=== PATIENT | male | born 1940 | race Caucasian/White ===

== ENCOUNTER 2018-09-27 23:11 | Emergency (ER) | payer OTHER ==
[~2018-09-27] VITALS: Ht 167.6 cm; Wt 54.0 kg
[2018-09-27] MEDS ORDERED: NS IV 1000 ML 1,000 ML ONE ×2 (23:24→23:32)
[2018-09-27 23:31] VITALS: BP 89/66
[2018-09-27] MEDS ORDERED: ACETAMINOPHEN 500 MG TAB (TYLENOL) PO STA (23:32)
[2018-09-27 23:45] LABS: BASOPHILS % (AUTO) 0 % (0-10); EOSINOPHILS % (AUTO) 0 % (0-10); HEMATOCRIT 40 % (40-54); HEMOGLOBIN 13.2 G/DL (13.3-17.7); LYMPHOCYTES # (AUTO) 0.8 X 10^3 (1.0-4.0); LYMPHOCYTES % (AUTO) 9 % (12-44); MEAN CORPUSCULAR HEMOGLOBIN 29 PG (25-34); MEAN CORPUSCULAR HGB CONC 33 G/DL (32-36); MEAN CORPUSCULAR VOLUME 87 FL (80-99); MONOCYTES # (AUTO) 0.7 X 10^3 (0.0-1.0); MONOCYTES % (AUTO) 7 % (0-12); NEUTROPHILS # (AUTO) 7.7 X 10^3 (1.8-7.8); NEUTROPHILS % (AUTO) 84 % (42-75); PLATELET COUNT 333 10^3/uL (130-400); RED BLOOD COUNT 4.62 10^6/uL (4.35-5.85); RED CELL DISTRIBUTION WIDTH 15.7 % (10.0-14.5); WHITE BLOOD COUNT 9.2 10^3/uL (4.3-11.0)
[2018-09-27] MEDS ORDERED: NS IV ONE (23:45)
[2018-09-27 23:57] LABS: INR 1.2 (0.8-1.4); PROTHROMBIN TIME PATIENT 15.7 SEC (12.2-14.7)
--- NOTE | 2018-09-27 23:59 | ED General ---
General Chief Complaint: Fever-Adult/Adol Stated Complaint: ABD PAIN Source of Information: Patient, Family Exam Limitations: No Limitations History of Present Illness Date Seen by Provider: Sep 27, 2018 Time Seen by Provider: 23:10 Initial Comments Here with report of onset of confusion tonight at about 8 p.m. They were driving home and he almost missed one turn and then missed another. He went home and slept and wasn't feeling good. Ultimately the family decided to bring him in for further evaluation. Arrives weak and hypoxic with blood pressure 89 systolic. Does have history of aortic abdominal [facility] Patient and family state it's not big enough for operation at. Does continue to smoke at least a half pack daily. Does use albuterol inhaler. Has had increased cough recently. Family and patient admits that he hasn't been feeling well all day long. Has complaint of pain to his left side that apparently is chronic and he states is not really significantly different than previous. Does have chills and is shaking all over. No report of vomiting or diarrhea. Timing/Duration: 12 Hours Severity: Moderate Associated Systoms: Cough, Fever/Chills; No Headaches, No Loss of Appetite; Malaise; No Nausea/Vomiting; Shortness of Air, Weakness Allergies and Home Medications Allergies Coded Allergies: No Known Drug Allergies (Unverified , 09/27/18) Patient Home Medication List Home Medication List Reviewed: Yes Review of Systems Review of Systems Constitutional: see HPI, chills; No diaphoresis; fever, weakness EENTM: nose congestion; No throat pain Respiratory: cough, short of breath Cardiovascular: No chest pain, No edema Gastrointestinal: abdominal pain; No nausea, No vomiting Genitourinary: no symptoms reported Musculoskeletal: muscle pain; No neck pain Skin: no symptoms reported Psychiatric/Neurological: See HPI, Weakness Hematologic/Lymphatic: No Symptoms Reported All Other Systems Reviewed Negative Unless Noted: Yes Past Ciemnov-Mzrhwn-Zqwhsi Hx Past Med/Social Hx: Reviewed Nursing Past Med/Soc Hx Patient Social History Alcohol Use: Denies Use Smoking Status: Current Everyday Smoker Type Used: Cigarettes Recent Foreign Travel: No Contact w/Someone Who Travel: No Past Medical History Surgeries: Yes Orthopedic Respiratory: Yes COPD Cardiac: Yes Aneurysm Neurological: No Genitourinary: Yes Benign Prostatic Hyperpl Gastrointestinal: Yes Gastrointestinal Bleed Musculoskeletal: Yes Endocrine: No HEENT: No Cancer: No Psychosocial: No Family Medical History Reviewed Nursing Family Hx No Pertinent Family Hx Physical Exam-Suspected Sepsis Physical Exam Vital Signs Vital Signs - First Documented 09/27/18 23:31 FiO2 100 Capillary Refill : Height, Weight, BMI Height: '" Weight: lbs. oz. kg; BMI Method: General Appearance: Mild Distress, Thin HEENT: PERRL/EOMI, Pharyngeal Erythema, Other (bilateral nasal congestion with clear rhinorrhea and moderate erythema) Neck: Non Tender, Supple Respiratory: Lungs Clear, Normal Breath Sounds Cardiovascular: No Murmur, Tachycardia Gastrointestinal: Non Tender, Soft Back: Normal Inspection, No CVA Tenderness, No Vertebral Tenderness Extremity: Normal Range of Motion, Non Tender Neurologic/Psychiatric: Alert, Disoriented (confused to time.) Skin: normal color, warm/dry Focused Exam Lactate Level 09/27/18 23:31: Lactic Acid Level 2.22*H 09/28/18 01:36: Lactic Acid Level 0.79 Lactic Acid Level Laboratory Tests Test 09/27/18 23:31 09/28/18 01:36 Lactic Acid Level 2.22 MMOL/L (0.50-2.00) *H 0.79 MMOL/L (0.50-2.00) Procedures/Interventions Lumen: triple Central Line Procedure: betadine prep, sterile drapes applied, sterile dressing applied Position: internal jugular (R) Anesthesia: Lidocaine Volume Anesthetic (ccs): 4 Complications: none Post Position: sutured, good blood return, position confirmed w/ CXR Progress/Results/Core Measures Suspected Sepsis SIRS Temperature: Pulse: Respiratory Rate: Laboratory Tests 09/27/18 23:31: White Blood Count 9.2 Blood Pressure / Mean: 09/27/18 23:31: Lactic Acid Level 2.22*H 09/28/18 01:36: Lactic Acid Level 0.79 Laboratory Tests 09/27/18 23:31: Creatinine 0.80, INR Comment 1.2, Platelet Count 333, Total Bilirubin 1.1H Results/Orders Lab Results Laboratory Tests Test 09/27/18 23:31 09/28/18 01:00 09/28/18 01:36 Range/Units White Blood Count 9.2 4.3-11.0 10^3/uL Red Blood Count 4.62 4.35-5.85 10^6/uL Hemoglobin 13.2 L 13.3-17.7 G/DL Hematocrit 40 40-54 % Mean Corpuscular Volume 87 80-99 FL Mean Corpuscular Hemoglobin 29 25-34 PG Mean Corpuscular Hemoglobin Concent 33 32-36 G/DL Red Cell Distribution Width 15.7 H 10.0-14.5 % Platelet Count 333 130-400 10^3/uL Mean Platelet Volume 10.0 7.4-10.4 FL Neutrophils (%) (Auto) 84 H 42-75 % Lymphocytes (%) (Auto) 9 L 12-44 % Monocytes (%) (Auto) 7 0-12 % Eosinophils (%) (Auto) 0 0-10 % Basophils (%) (Auto) 0 0-10 % Neutrophils # (Auto) 7.7 1.8-7.8 X 10^3 Lymphocytes # (Auto) 0.8 L 1.0-4.0 X 10^3 Monocytes # (Auto) 0.7 0.0-1.0 X 10^3 Eosinophils # (Auto) 0.0 0.0-0.3 10^3/uL Basophils # (Auto) 0.0 0.0-0.1 10^3/uL Prothrombin Time 15.7 H 12.2-14.7 SEC INR Comment 1.2 0.8-1.4 Activated Partial Thromboplast Time 22 L 24-35 SEC Sodium Level 132 L 135-145 MMOL/L Potassium Level 4.9 3.6-5.0 MMOL/L Chloride Level 93 L 98-107 MMOL/L Carbon Dioxide Level 21 21-32 MMOL/L Anion Gap 18 H 5-14 MMOL/L Blood Urea Nitrogen 16 7-18 MG/DL Creatinine 0.80 0.60-1.30 MG/DL Estimat Glomerular Filtration Rate > 60 BUN/Creatinine Ratio 20 Glucose Level 98 70-105 MG/DL Lactic Acid Level 2.22 *H 0.79 0.50-2.00 MMOL/L Calcium Level 9.4 8.5-10.1 MG/DL Corrected Calcium 9.7 8.5-10.1 MG/DL Total Bilirubin 1.1 H 0.1-1.0 MG/DL Aspartate Amino Transf (AST/SGOT) 37 H 5-34 U/L Alanine Aminotransferase (ALT/SGPT) 23 0-55 U/L Alkaline Phosphatase 274 H 40-136 U/L Total Protein 7.8 6.4-8.2 GM/DL Albumin 3.6 3.2-4.5 GM/DL Urine Color YELLOW Urine Clarity CLEAR Urine pH 5 5-9 Urine Specific Biddle 1.010 L 1.016-1.022 Urine Protein 2+ H NEGATIVE Urine Glucose (UA) NEGATIVE NEGATIVE Urine Ketones NEGATIVE NEGATIVE Urine Nitrite NEGATIVE NEGATIVE Urine Bilirubin NEGATIVE NEGATIVE Urine Urobilinogen 1 NORMAL MG/DL Urine Leukocyte Esterase 1+ H NEGATIVE Urine RBC (Auto) 1+ H NEGATIVE Urine RBC RARE /HPF Urine WBC 2-5 /HPF Urine Squamous Epithelial Cells 5-10 /HPF Urine Crystals NONE /LPF Urine Bacteria TRACE /HPF Urine Casts NONE /LPF Urine Mucus SMALL H /LPF Urine Culture Indicated CULTURE PENDING Micro Results Microbiology 09/27/18 Influenza Types A,B Antigen (ANNELISE) - Final, Complete My Orders Orders - LICHA DELACRUZ MD Ns Iv 1000 Ml (Sodium Chloride 0.9%) (09/27/18 23:24) Cbc With Automated Diff (09/27/18 23:32) Comprehensive Metabolic Panel (09/27/18 23:32) Blood Culture (09/27/18 23:32) Sputum Culture (09/27/18 23:32) Urinalysis (09/27/18 23:32) Urine Culture (09/27/18 23:32) Protime With Inr (09/27/18 23:32) Partial Thromboplastin Time (09/27/18 23:32) Saline Lock/Iv-Start (09/27/18 23:32) Saline Lock/Iv-Start (09/27/18 23:32) Ekg Tracing (09/27/18 23:32) Vital Signs Adult Sepsis Patie Q15M (09/27/18 23:32) O2 (09/27/18 23:32) Remove Rings In Anticipation O (09/27/18 23:32) Lactic Acid Analyzer (09/27/18 23:32) Influenza A And B Antigens (09/27/18 23:32) Saline Lock/Iv-Start (09/27/18 23:32) Ns Iv 1000 Ml (Sodium Chloride 0.9%) (09/27/18 23:45) Acetaminophen Tablet (Tylenol Tablet) (09/27/18 23:32) Ns Iv 1000 Ml (Sodium Chloride 0.9%) (09/27/18 23:32) Ct Chest/Abdomen/Pelvis W (09/28/18 00:09) Chest 1 View, Ap/Pa Only (09/28/18 00:10) Oseltamivir 75 Mg Capsule (Tamiflu 75 (09/28/18 00:15) Saline Lock/Iv-Start (09/28/18 01:01) Ns Iv 1000 Ml (Sodium Chloride 0.9%) (09/28/18 01:01) Piperacillin Sodium/Tazobactam (Zosyn Vi (09/28/18 01:15) Fentanyl Injection (Sublimaze Injection (09/28/18 01:01) Levophed Drip (09/28/18 02:15) Chest 1 View, Ap/Pa Only (09/28/18 02:12) Medications Given in ED Current Medications Medications Dose Ordered Sig/Naomi Route Start Time Stop Time Status Last Admin Dose Admin Oseltamivir Phosphate 75 mg ONCE ONCE PO 09/28/18 00:15 09/28/18 00:16 DC 09/28/18 00:26 75 MG Piperacillin Sod/ Tazobactam Sod 4.5 gm/Sodium Chloride 100 ml @ 200 mls/hr ONCE ONCE IV 09/28/18 01:15 09/28/18 01:44 DC 09/28/18 01:19 200 MLS/HR Sodium Chloride 1,000 ml @ 250 mls/hr Q4H ONCE IV 09/28/18 01:01 09/28/18 05:00 09/28/18 01:19 250 MLS/HR Sodium Chloride 1,619.31 ml @ 1,619.31 mls/hr ONCE ONCE IV 09/27/18 23:45 09/28/18 00:44 DC 09/27/18 23:30 1,619.31 MLS/HR Vital Signs/I&O 09/27/18 09/27/18 09/27/18 09/28/18 23:31 23:31 23:31 00:04 Temp 101.8 101.8 100.8 Pulse 115 115 112 Resp 24 24 20 B/P (MAP) 89/66 (74) 89/66 (74) 122/58 (79) Pulse Ox 91 91 92 93 O2 Delivery Nasal Cannula Nasal Cannula Nasal Cannula Nasal Cannula O2 Flow Rate 4.00 100.00 2.00 100.00 4.00 4.00 FiO2 100 Capillary Refill : Progress Note : Progress Note Seen and evaluated on arrival to ED. Initial O2 sat 77 percent on room air. Placed on nasal cannula at 3 L which did improve his oxygen saturation to low 90s. IV 2, labs, blood cultures, lactic acid and EKG ordered. Initial blood pressure 89 systolic. Normal saline 30 mL/kg initiated based on weight of 119 pounds. This is slightly under 2 L to 2 L was ordered and started. Blood pressure did improve to greater than 100 systolic with normal saline. Typically has lower blood pressure but not below 90 systolic per the family. Temperature noted to be 101.6. Acetaminophen 1 g by mouth ordered. Influenza screen ordered. Monitor patient. 0007: Influenza B-positive. Tamiflu will be initiated based on creatinine. Pending labs. 0009: Creatinine okay. Tamiflu 75 mg by mouth ordered. We will get CT chest, abdomen and pelvis due to pain and history. Monitor patient. 0128: Initiated transfer proceedings with [facility] in [place], [place]. 0135: They will call me back after discussion with ICU doctor there. In the interim, patient's blood pressure has declined to the 70s and 80s systolic. He has had 30 mL/kg bolus and currently is at 250 an hour on normal saline. We will give 250 bolus of normal saline now while initiating central line. 0215: Central line is placed and chest x- ray pending. We will initiate Levophed drip and titrate to blood pressure greater than 90 systolic and 65. 0220: I have spoken with Dr. Kim at the [facility] in the emergency department and he accepts patient for transfer ER to ER. Does proceedings have been initiated. 0225: I have spoken with the family and they agree with plan. Medications administered included normal saline 3 L, Tamiflu 75 mg by mouth, Zosyn 4.5 g IV, fentanyl 50 g IV and initiated on Levophed drip. Vancomycin 1 g IV initiated. ECG Initial ECG Impression Date: Sep 27, 2018 Initial ECG Impression Time: 23:17 Initial ECG Rate: 110 Initial ECG Rhythm: S.Tach Comment Sinus tachycardia with left atrial abnormality. Nonspecific intraventricular conduction delay. LVH noted. Normal axis. No evidence of ST elevation DE. No previous available for comparison. Interpreted by me. Diagnostic Imaging Diagonstic Imaging: Xray Plain Films/CT/US/NM/MRI: chest Comments Left basilar infiltrate Reviewed: Reviewed by Me Diagonstic Imaging: CT Plain Films/CT/US/NM/MRI: chest, abdomen, pelvis Comments CT chest shows large lingular and left lower lobe consolidation likely representing aspiration/pneumonia. Severe central lobular emphysema. Multiple pulmonary nodules are noted measuring approximately 3-8 mm. These may represent metastasis. Multiple sclerotic lesions in the manubrium, sternum, ribs and thoracic spine. No pathological fracture. CT abdomen and pelvis with contrast shows distended gallbladder with no definite stones identified. However there is intra and extrahepatic biliary dilatation. Recommend right upper quadrant ultrasound with possible ERCP/MRCP for better characterization. Infrarenal aortic aneurysm measuring approximately 4.4 cm with 50 percent narrowing secondary to circumferential noncalcified and calcified plaque. Sclerotic lesions in the L5 vertebral body and pelvis. Age indeterminate 20 percent height loss wedging of the L3 vertebral body without spinal canal stenosis or retropulsion. Does not appear to be pathologic given lack of underlying lesion. No bowel obstruction. Copious amount of stool throughout the colon. Bladder is unremarkable. Enlarged prostate gland. Reviewed: Reviewed [place] Study, Reviewed by Me Departure Impression Primary Impression: Left lower lobe pneumonia Qualified Codes: J18.1 - Lobar pneumonia, unspecified organism Additional Impressions: Influenza B Severe sepsis Disposition: XFER SHT-TRM HOSP Condition: Stable Transfer Time Spoke to Accepting Phy: 02:20 Transfer Facility: [place], [place], Dr. Kim accepting ER to ER Method of Transfer: EMS Departure-Patient Inst. Referrals: ASHLEY HUGHES MD (PCP/Family) Primary Care Physician LICHA DELACRUZ MD Sep 27, 2018 23:59
[2018-09-28 00:04] VITALS: BP 122/58
[2018-09-28 00:06] LABS: ALANINE AMINOTRANSFERASE 23 U/L (0-55); ALBUMIN 3.6 GM/DL (3.2-4.5); ALKALINE PHOSPHATASE 274 U/L (40-136); BILIRUBIN,TOTAL 1.1 MG/DL (0.1-1.0); BUN/CREATININE RATIO 20; CALCIUM 9.4 MG/DL (8.5-10.1); CARBON DIOXIDE 21 MMOL/L (21-32); CHLORIDE 93 MMOL/L (98-107); GFR ESTIMATED > 60; GLUCOSE 98 MG/DL (70-105); POTASSIUM 4.9 MMOL/L (3.6-5.0); SODIUM 132 MMOL/L (135-145); TOTAL PROTEIN 7.8 GM/DL (6.4-8.2)
[2018-09-28] MEDS ORDERED: OSELTAMIVIR 75 MG (TAMIFLU) CAPSULE PO ONE (00:15)
[2018-09-28] MEDS ORDERED: NS IV 1000 ML 1,000 ML IV ONE (01:01)
[2018-09-28] MEDS ORDERED: fentaNYL INJECTION 100 MCG/2 ML AMP IVP STA (01:01)
[2018-09-28 01:06] LABS: BILIRUBIN,URINE NEGATIVE (NEGATIVE); CLARITY,URINE CLEAR; COLOR,URINE YELLOW; GLUCOSE, URINE (UA) NEGATIVE (NEGATIVE); KETONES,URINE NEGATIVE (NEGATIVE); LEUKOCYTE ESTERASE ,URINE 1+ (NEGATIVE); NITRITE,URINE NEGATIVE (NEGATIVE); PH,URINE 5 (5-9); PROTEIN,URINE 2+ (NEGATIVE); UROBILINOGEN,URINE 1 MG/DL (NORMAL)
[2018-09-28] MEDS ORDERED: PIPERACILLIN SODIUM/TAZOBACTAM 4.5 GM in NS (IVPB) 100 ML IV ONE (01:15)
[2018-09-28 01:17] LABS: BACTERIA,URINE TRACE /HPF; RBC,URINE RARE /HPF
[2018-09-28] MEDS ORDERED: NOREPINEPHRINE 4 MG/4 ML (LEVOPHED) AMP IV ONE (02:11)
[2018-09-28] MEDS ORDERED: NS (IVPB) 250 ML ONE (02:12)
[2018-09-28] MEDS ORDERED: NOREPINEPHRINE 4 MG in NS (IVPB) 250 ML IV SCH (02:15)
--- NOTE | 2018-09-28 02:33 | NUR ---
BP-75/52 P-77 SPo2-91% at the time of levophed initiation- 5mcg/min.
--- NOTE | 2018-09-28 02:39 | NUR ---
[facility] dispatched for transfer.
[2018-09-28] MEDS ORDERED: VANCOMYCIN INJECTION 1,000 MG in NS (IVPB) 250 ML IV ONE (02:45)
--- NOTE | 2018-09-28 02:50 | NUR ---
Levophed increased to 10mcg/min. BP-86/50 P-77 SPo2-92%
[2018-09-28 03:45] VITALS: BP 95/56
--- NOTE | 2018-09-28 06:22 | Diagnostic Imaging Report ---
PROCEDURE: CT chest, abdomen, and pelvis with contrast. TECHNIQUE: Multiple contiguous axial images were obtained through the chest, abdomen, and pelvis after the administration of intravenous contrast. INDICATION: Weakness and confusion with difficulty breathing There is extensive diffuse background centrilobular emphysema involving both lungs. There is dense consolidation within the lingula and left lower lobe. No significant pleural or pericardial fluid is identified. Mildly prominent mediastinal lymph nodes may be reactive. There does appear to be more pronounced subcarinal adenopathy with largest node measuring approximately 2.4 x 1.3 cm. There is small amount of fluid within the esophagus. 1 cm nodular densities are seen in the right lung base adjacent to the dome of the diaphragm. Additional scattered subpleural nodules are seen in both lungs, diffusely. IMPRESSION: Consolidation in the left lung is most suggestive of pneumonia. There is extensive background centrilobular emphysema. Subcentimeter subpleural nodules are seen in both lungs with most pronounced nodules in the right lung base. These are nonspecific and could be related to inflammation as well. Additional CT followup after treatment for pneumonia is recommended for further assessment. CT abdomen and pelvis: There is gallbladder distention with mild intra-and extrahepatic biliary ductal dilatation. No calcified stone is seen. Otherwise, there is no focal hepatic or splenic lesion identified. Adrenal glands and kidneys are unremarkable. There is infrarenal abdominal aorta reaching approximately 5 cm in diameter with moderate amount of eccentric mural thrombus. Aneurysm extends into the right common iliac artery which measures 2.5 cm in diameter. There is no evidence of free fluid. No bowel obstruction is identified. Bladder is nonopacified and appears somewhat distended with extensive lobular enlargement of the prostate gland which protrudes into the bladder base. In addition, there are several scattered sclerotic foci within the lower thoracic spine and lumbar spine which are indeterminate. There does appear to be mild wedge deformity of the L3 vertebral body without retropulsion. IMPRESSION: Biliary ductal dilatation. If indicated, abdominal ultrasonography may be of value for assessment. 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 Lobular enlargement of the prostate gland which protrudes into the bladder. Clinical correlation is recommended. L3 compression fracture with multiple sclerotic foci also noted. Consideration could be given to MRI of the lumbar spine for assessment. Dictated by: Dictated on workstation # [id number]
--- NOTE | 2018-09-28 06:30 | Diagnostic Imaging Report ---
INDICATION: Central venous catheter evaluation. Portable upright AP view of the chest is obtained. FINDINGS: Since study of earlier in the day, there has been placement of right jugular central venous catheter which reaches the mid superior vena cava. There is diffuse background air trapping and prominence of interstitial markings. Area of consolidation is also noted in the lingula and left lower lobe. No definite pleural fluid is identified. IMPRESSION: Findings are suggestive of background COPD with probable superimposed acute infiltrate in the lingula and left lower lobe. There is no evidence of complication related to right jugular central venous catheter placement. Dictated by: Dictated on workstation # [id number]
--- NOTE | 2018-09-28 06:33 | Diagnostic Imaging Report ---
INDICATION: Weakness and confusion. Portable upright AP view of the chest is obtained. FINDINGS: Overall heart size and pulmonary vascularity are within normal limits. There is background air trapping likely due to emphysema. There is increased density in the left base likely due to lower lobe infiltrate. No definite pleural fluid is identified. There is no evidence of pneumothorax. IMPRESSION: Probable background COPD with superimposed left lower lobe pneumonia. Radiographic followup would be of use. Dictated by: Dictated on workstation # [id number]
== END 2018-09-28 03:55 | disposition short-term general hospital (02) ==
LOC: ER 23:13
DX: J18.1 Lobar pneumonia, unspecified organism (principal); J11.1 Influenza due to unidentified influenza virus with other respiratory manifestations; A41.9 Sepsis, unspecified organism; R65.20 Severe sepsis without septic shock; J44.9 Chronic obstructive pulmonary disease, unspecified; F17.210 Nicotine dependence, cigarettes, uncomplicated; Z87.448 Personal history of other diseases of urinary system; Z87.19 Personal history of other diseases of the digestive system
CPT/HCPCS: 36415; 71045; 71260; 74177; 80053; 81000; 83605; 85025; 85610; 85730; 87040; 87070; 87088; 87205; 87804; 93005